=== PATIENT | female | born 1975 | race Caucasian/White ===

== ENCOUNTER 2019-10-14 16:41 | Emergency (ER) | payer OTHER ==
[~2019-10-14] VITALS: Ht 162.6 cm; Wt 90.7 kg
[2019-10-14] MEDS ORDERED: NOHOMEMEDICATIONS (16:57)
[2019-10-14 17:41] LABS: ABSOLUTE BASOPHILS 0.1 thou/uL (0.0-0.2); ABSOLUTE EOSINOPHILS 0.4 thou/uL (0.0-0.7); ABSOLUTE LYMPHOCYTES 2.7 thou/uL (0.8-5.3); ABSOLUTE MONOCYTES 0.5 thou/uL (0.0-1.2); ABSOLUTE NEUTROPHILS 2.8 thou/uL (1.6-8.1); BASOPHILS 0.8 %; EOSINOPHILS 5.8 %; HEMATOCRIT 39.7 % (37.0-47.0); HEMOGLOBIN 13.7 gm/dL (12.0-15.0); LYMPHOCYTES 41.9 %; MCH 28.8 pg (26.0-34.0); MCHC 34.4 g/dL (28.0-37.0); MCV 83.8 fL (80.0-100.0); MONOCYTES 7.7 %; MPV 8.4 fl. (7.2-11.1); NUCLEATED RBCS 0 /100WBC; PLATELET COUNT* 275 thou/uL (150-400); POLYS 43.8 %; RBC 4.74 mil/uL (4.20-5.00); RDW-CV 13.8 % (10.5-14.5); WBC 6.4 thou/uL (4.0-11.0)
[2019-10-14 17:50] LABS: CALCIUM 9.2 mg/dL (8.5-10.1); CREATININE 0.7 mg/dL (0.6-1.3); POTASSIUM 3.3 mmol/L (3.5-5.1)
[2019-10-14 18:03] LABS: PROTIME 9.9 Seconds (9.20-11.50)
[2019-10-14 18:05] LABS: ALBUMIN 3.7 g/dL (3.4-5.0); TOTAL BILIRUBIN 0.2 mg/dL (<0.1-1.0); TOTAL PROTEIN 8.3 g/dL (6.4-8.2)
[2019-10-14 20:30] VITALS: BP 138/92
--- NOTE | 2019-10-15 16:54 | EKG ---
[place] [address] ELECTROCARDIOGRAM REPORT Name: PAT TORO Room: [facility]#: [id number] Admission: 10/14/19 Attend Phys: Discharge: 10/14/19 Date of : 79 Report #: [id number] THIS REPORT FOR: //name// [facility] ED Test Date: 2019-10-14 Test Time: 16:49:39 Pat Name: PAT MUNA Department: Room: Gender: [employer]idential [employer] Consultant: : [id number] Requested By: Erasto Matthews Order Number: [id number] MD: Carlos Sanchez Measurements Intervals [place] Rate: 67 P: -20 CT: 175 QRS: 26 QRSD: 93 T: -20 QT: 378 QTc: 399 Interpretive Statements Sinus rhythm Borderline T abnormalities, diffuse leads No previous ECG available for comparison Electronically Signed On 10-15-2019 16:54:14 [employer] by Carlos Sanchez [email or web address] <ELECTRONICALLY SIGNED> By: Carlos Sanchez MD, MERGED WITH [facility] 10/15/19 1654 [id number] Carlos Sanchez MD, FACC /EPI
== END 2019-10-14 20:30 | disposition home or self-care (01) ==
LOC: M.ERS 16:41
PROVIDERS: Emergency Medicine
DX: R07.89 Other chest pain (principal)

== ENCOUNTER → 2019-10-17 | Outpatient (CLI) | payer OTHER ==
[~2019-10-17] MED LIST: NOHOMEMEDICATIONS
== END ==
LOC: M.CT 17:20
DX: J98.11 Atelectasis (principal)

== ENCOUNTER → 2020-04-16 | Outpatient (CLI) | payer OTHER | LOC: M.RAD 15:40 | DX: N63.10 Unspecified lump in the right breast, unspecified quadrant (principal) ==